=== PATIENT | male | born 1940 | race Caucasian/White ===

== ENCOUNTER 2019-09-29 19:24 | Inpatient (IN) | payer BC ==
[~2019-09-29] VITALS: Ht 177.8 cm; Wt 68.0 kg
[2019-09-29 20:04] LABS: Basophils # (auto) 0 10 ^3/uL (0-0.2); Basophils % (auto) 0.3 % (0.0-2.0); Eosinophils # (auto) 0.1 10 ^3/uL (0-0.8); Eosinophils % (auto) 1.9 % (0.0-7.0); Hematocrit 38.5 % (41.0-53.0); Lymphocytes # (auto) 0.9 10 ^3/uL (0.4-5.4); Lymphocytes % (auto) 17.6 % (10.0-50.0); Mean Corpuscular Hemoglobin 32.4 pg (28.0-32.0); Mean Corpuscular Hgb Conc. 33.9 g/dL (32.0-36.0); Mean Corpuscular Volume 95.6 fL (80.0-100.0); Monocytes # (auto) 0.6 10 ^3/uL (0-1.3); Monocytes % (auto) 11.1 % (0.0-12.0); Neutrophils # (auto) 3.5 10 ^3/uL (1.6-8.6); Neutrophils % (auto) 69.1 % (37.0-80.0); Nucleated Red Blood Cells % 0.2 %; Platelet Count (auto) 228 10^3/uL (140-450); Red Blood Cells 4.02 10^6/uL (4.5-5.90); Red Cell Distribution Width 13.4 % (11.8-14.3); White Blood Cell 5.1 10^3/uL (4.4-10.8)
[2019-09-29 20:17] LABS: INR 1.04 (0.9-1.15); Partial Thromboplastin Time 27.3 sec (23.64-32.05)
[2019-09-29 20:21] LABS: Albumin 3.6 g/dL (3.4-5.0); Anion Gap 11 (5-15); Aspartate Aminotransferase 22 U/L (15-37); Blood Urea Nitrogen 9 mg/dL (7-18); Calcium 8.1 mg/dL (8.5-10.1); Carbon Dioxide 19 mmol/L (21-32); Chloride 101 mmol/L (98-107); Glucose 89 mg/dL (74-106); Magnesium 2.3 mg/dL (1.6-2.6); Potassium 3.6 mmol/L (3.5-5.1); Sodium 131 mmol/L (136-145)
[2019-09-29 20:26] LABS: Alanine Aminotransferase 27 U/L (16-61); Alkaline Phosphatase 49 U/L (45-117); BUN/Creatinine Ratio 11.7; Bilirubin, Total 1.5 mg/dL (0.2-1.0); GFR African American 125 mL/min; GFR Non-African American 103 mL/min; Total Protein 6.9 g/dL (6.4-8.2)
[2019-09-29] MEDS ORDERED: ASPirin 81 mg TAB PO ONE (21:30)
[2019-09-29] MEDS ORDERED: IPRATROPIUM BROM 0.5 MG/2.5ML INH SOL NEB ONE (21:30)
[2019-09-29] MEDS ORDERED: ALBUTEROL SULF 2.5 MG/0.5ML(0.5%) NEB SOLN NEB ONE (21:30)
[2019-09-29] MEDS ORDERED: ACETAMINOPHEN 325 MG TAB PO PRN (21:45)
[2019-09-29] MEDS ORDERED: ALBUTEROL SULF 2.5 MG/0.5ML(0.5%) NEB SOLN NEB PRN (21:45)
[2019-09-29] MEDS ORDERED: ONDANSETRON HCL 4 MG/2 ML VIAL IV PRN (21:45)
[2019-09-29] MEDS ORDERED: NITROGLYCERIN 0.4 MG SL TAB SL PRN (21:45)
[2019-09-29] MEDS ORDERED: TEMAZEPAM 15 MG CAP PO PRN (21:45)
[2019-09-29] MEDS ORDERED: MORPHINE SULF INJ 2 MG/ML SYRINGE 1ML IV PRN (21:45)
[2019-09-29] MEDS ORDERED: ATORVASTATIN 20 MG TAB PO SCH (22:00)
[2019-09-29] MEDS: FAMOTIDINE 20 MG TAB PO SCH (22:13)
--- NOTE | 2019-09-29 23:00 | NUR ---
OPENING NOTE RECEIVED PATIENT FROM ER. NO REPORT PROVIDED. ASSUMING ROLE OF CARE OF PATIENT AT THIS TIME. PATIENT SHOWING NO SIGN OF DISTRESS, SHORTNESS OF BREATH, AND PATIENT DENIES ANY PAIN AT THIS TIME. PATIENT EDUCATED ON PLAN OF CARE FOR THE NIGHT AND PATIENT VERBALIZED UNDERSTANDING. BED LOWERED, CALL LIGHT WITHIN REACH, AND PATIENT WILL BE ROUNDED ON EVERY HOUR AND NEEDED.
[2019-09-29 23:06] VITALS: BP 147/78
[2019-09-29 23:21] VITALS: BP 147/78
[2019-09-29] MEDS ORDERED: LISI-646 PO (23:35)
[2019-09-29] MEDS ORDERED: PAR20T PO (23:35)
[2019-09-30 02:06] VITALS: BP 147/78
[2019-09-30 05:00] VITALS: BP 139/77
--- NOTE | 2019-09-30 05:00 | NUR ---
PATIENT STATES PAIN IS 8/10 TO HOUSE CALLS NURSE WHEN ASKED ABOUT PAIN. PATIENT STATES PAIN IS FROM UPSET STOMACH. PATIENT REQUESTING A "SPRITE OR 7UP DURING BREAKFAST. PATIENT NOT REQUESTING PAIN MEDICINE. WILL ENDORSE TO DAYSHIFT. WILL CONTINUE TO MONITOR.
[2019-09-30 05:55] LABS: Basophils # (auto) 0 10 ^3/uL (0-0.2); Basophils % (auto) 0.6 % (0.0-2.0); Eosinophils # (auto) 0.1 10 ^3/uL (0-0.8); Eosinophils % (auto) 2.1 % (0.0-7.0); Hemoglobin 13.5 g/dL (13.5-17.5); Lymphocytes # (auto) 0.6 10 ^3/uL (0.4-5.4); Lymphocytes % (auto) 14.2 % (10.0-50.0); Mean Corpuscular Hemoglobin 33.3 pg (28.0-32.0); Mean Corpuscular Hgb Conc. 34.7 g/dL (32.0-36.0); Monocytes # (auto) 0.6 10 ^3/uL (0-1.3); Monocytes % (auto) 13.8 % (0.0-12.0); Neutrophils # (auto) 2.8 10 ^3/uL (1.6-8.6); Neutrophils % (auto) 69.3 % (37.0-80.0); Platelet Count (auto) 198 10^3/uL (140-450); Red Blood Cells 4.06 10^6/uL (4.5-5.90); Red Cell Distribution Width 13.4 % (11.8-14.3)
[2019-09-30 06:06] LABS: Calcium 7.9 mg/dL (8.5-10.1); Potassium 3.5 mmol/L (3.5-5.1)
[2019-09-30 06:09] LABS: BUN/Creatinine Ratio 13.2
--- NOTE | 2019-09-30 08:00 | NUR ---
Opening Shift Note Assumed care of patient, awake, alert and oriented. No S/S of distress/SOB. Complaining of upper gastric pain. Requesting a sprite or similar soda drink so he can burp. Placed request for a soda. Instructed on POC and to call for assist PRN. Bed locked, in lowest position, call light within reach. Will continue to monitor for changes Q1hr and PRN.
[2019-09-30 09:00] VITALS: BP 150/77
[2019-09-30] MEDS ORDERED: ASPirin 81 mg TAB PO SCH (10:00)
[2019-09-30] MEDS ORDERED: ENOXAPARIN SOD 40 MG/0.4 ML SYRINGE SC SCH (10:00)
[2019-09-30] MEDS ORDERED: LISINOPRIL 5 MG TAB PO SCH (10:00)
[2019-09-30] MEDS: FAMOTIDINE 20 MG TAB PO SCH (11:17)
[2019-09-30 12:30] VITALS: BP 136/95
[2019-09-30] MEDS ORDERED: LISINOPRIL 10 MG TAB PO ONE (12:30)
[2019-09-30] MEDS ORDERED: ASPI81CH49 PO (12:42)
--- NOTE | 2019-09-30 14:47 | NUR ---
Titrated O2 to 2L, down from 3L. Assessed SpO2 at at 99%. Will continue to monitor
[2019-09-30 16:38] VITALS: BP 152/83
[2019-09-30 17:28] VITALS: BP 136/95
[2019-10-01] MEDS ORDERED: LISINOPRIL 20 MG TAB PO SCH (10:00)
== END 2019-09-30 17:50 | disposition home or self-care (01) | DRG 191 ==
LOC: EDBD 19:24 → ER 19:24 → TELE 19:25 → TELE-WESTW 22:45
PROVIDERS: ADMIT Nurse Practitioner; ATTEND Internal Medicine
DX: J44.1 Chronic obstructive pulmonary disease with (acute) exacerbation (principal); I20.0 Unstable angina; E87.1 Hypo-osmolality and hyponatremia; C61 Malignant neoplasm of prostate; E78.5 Hyperlipidemia, unspecified; F41.9 Anxiety disorder, unspecified; J44.9 Chronic obstructive pulmonary disease, unspecified; E78.00 Pure hypercholesterolemia, unspecified; I10 Essential (primary) hypertension; Z82.49 Family history of ischemic heart disease and other diseases of the circulatory system; Z85.46 Personal history of malignant neoplasm of prostate; Z87.891 Personal history of nicotine dependence; Z98.41 Cataract extraction status, right eye; Z79.899 Other long term (current) drug therapy
CPT/HCPCS: 36415; 71045; 80048; 80053; 83735; 83880; 84443; 84484; 85025; 85610; 85730; 93005; 93306; 94640; G0378